=== PATIENT | male | born 1995 | race Caucasian/White ===

== ENCOUNTER 2021-01-27 12:21 | Emergency (ER) | payer SELFPAY ==
[~2021-01-27] VITALS: Ht 177.8 cm; Wt 65.4 kg
--- NOTE | 2021-01-27 12:36 | NUR ---
PATIENT WALKED BACK FROM TRIAGE WITH CHIEF C/O "GNARLY STOMACH BUG SINCE I ATE [facility] 2 DAYS AGO." PATIENT REPORTS INTERMITTENT ABD PAIN, AND UNABLE TO KEEP ANYTHING DOWN FOR THE LAST TWO DAYS. PATIENT DENIES DIARRHEA, DENIES FEVER, NO PAIN WITH URINATION. ELLIE IVEY, CALL LIGHT WITHIN REACH.
--- NOTE | 2021-01-27 13:39 | NUR ---
PATIENT SITTING IN GURNEY ON PHONE, NADN, VSS, CALL LIGHT WITHIN REACH. WAITING FOR MD ORDERS.
[2021-01-27] MEDS ORDERED: SODIUM CHLORIDE 0.9% 1,000ML IVBOLUS ONE (14:00)
[2021-01-27] MEDS ORDERED: FAMOTIDINE 20 MG/2 ML IVPush ONE (14:00)
[2021-01-27] MEDS ORDERED: SODIUM CHLORIDE FLUSH 10ML SYR IVF ONE (14:00)
[2021-01-27] MEDS ORDERED: ONDANSETRON 2MG/ML, 2ML IVPush ONE (14:00)
[2021-01-27] MEDS ORDERED: FAMOTIDINE 20 MG/2 ML ONE (14:13)
[2021-01-27] MEDS ORDERED: ONDANSETRON 2MG/ML, 2ML ONE (14:13)
[2021-01-27 14:29] LABS: BASOPHILS % (AUTO) 0 % (0-1); EOSINOPHILS % (AUTO) 2 % (1-7); LYMPHOCYTES % (AUTO) 32 % (22-44); MEAN CORPUSCULAR HEMOGLOBIN 30.5 pg (27.5-34.5); MEAN CORPUSCULAR HGB CONC 34.6 g/dL (33.2-36.2); MEAN PLATELET VOLUME 8.2 fL (7.4-10.4); MONOCYTES % (AUTO) 8 % (2-9); NEUTROPHILS % (AUTO) 58 % (42-75); PLATELET COUNT 205 x10^3/uL (130-400); RED BLOOD COUNT 5.26 x10^6/uL (4.38-5.82); RED CELL DISTRIBUTION WIDTH 13.2 % (9.4-14.8)
[2021-01-27 14:32] LABS: MD NO
[2021-01-27 14:42] LABS: ALANINE AMINOTRANSFERASE 28 U/L (12-78); ALBUMIN 4.2 g/dL (3.4-5.0); ANION GAP 6 mmol/L (5-15); CALCIUM 8.5 mg/dL (8.5-10.1); CHLORIDE 109 mmol/L (98-107); CREATININE 0.95 mg/dL (0.7-1.3)
[2021-01-27 14:44] LABS: ALKALINE PHOSPHATASE 64 U/L (45-117); BILIRUBIN,TOTAL 0.6 mg/dL (0.2-1.0); TOTAL PROTEIN 7.1 g/dL (6.4-8.2)
--- NOTE | 2021-01-27 15:03 | NUR ---
REPORT FROM MCKAY CHENEY
[2021-01-27 15:12] VITALS: BP 112/72
== END 2021-01-27 16:12 | disposition home or self-care (01) ==
LOC: ED 14:02
DX: R11.2 Nausea with vomiting, unspecified (principal); R10.9 Unspecified abdominal pain; R51.9 Headache, unspecified; J45.909 Unspecified asthma, uncomplicated
CPT/HCPCS: 36415; 74021; 80053; 83690; 85025; 96361; 96374; 96375; 99284; J2405; J7030